=== PATIENT | male | born 1985 | race Caucasian/White ===

== ENCOUNTER 2017-04-03 22:51 | Emergency (ER) | payer SELFPAY ==
[~2017-04-03] VITALS: Ht 170.2 cm; Wt 73.0 kg
[2017-04-03 22:53] VITALS: BP 144/79; PULSE 78; RESP 18; TEMP 98.7; O2SAT 97
[2017-04-03] MEDS ORDERED: IBUP800T23 PO (23:51)
--- NOTE | 2017-04-04 00:26 | PD ---
HPI Chief Complaint: Flank/Kidney Pain Time Seen by Provider: 00:09 Travel History International Travel<30 days: No Contact w/Intl Traveler<30days: No Traveled to known affect area: No History of Present Illness HPI 31-year-old male complains of right flank pain and right upper quadrant abdominal pain. Patient states that the symptoms started this afternoon. Patient states that he has nausea but no vomiting or diarrhea. Patient denies any fever chills. Patient denies any injury. Patient denies any history kidney stone. Patient denies any dysuria or frequency. PFSH Past Medical History Medical History: Denies Significant Hx Tetanus Vaccination: < 5 Years Influenza Vaccination: No Social History Alcohol Use: Yes (rare) Tobacco Use: Yes ( 3 per day) Substance Use: No Allergies-Medications (Allergen,Severity, Reaction): Coded Allergies: No Known Allergies (Unverified , 04/03/17) Reported Meds & Prescriptions Reported Meds & Active Scripts Active Reported Ibuprofen 800 Mg Tab 800 Mg PO Q6HR PRN Review of Systems General / Constitutional: No: Fever Eyes: No: Visual changes HENT: No: Headaches Cardiovascular: No: Chest Pain or Discomfort Respiratory: No: Shortness of Breath Gastrointestinal: Positive: Abdominal Pain Genitourinary: No: Dysuria Musculoskeletal: No: Pain Skin: No Rash Neurologic: No: Weakness Psychiatric: No: Depression Endocrine: No: Polydipsia Hematologic/Lymphatic: No: Easy Bruising Physical Exam Narrative GENERAL: Well-nourished, well-developed patient. SKIN: Focused skin assessment warm/dry. HEAD: Normocephalic. EYES: No scleral icterus. No injection or drainage. NECK: Supple, trachea midline. No JVD or lymphadenopathy. CARDIOVASCULAR: Regular rate and rhythm without murmurs, gallops, or rubs. RESPIRATORY: Breath sounds equal bilaterally. No accessory muscle use. GASTROINTESTINAL: Abdomen soft. Patient has moderate tenderness on palpation right flank area and right upper quadrant of the abdomen. No rebound tenderness. No mass. BACK: Nontender without obvious deformity. No CVA tenderness. Neurologic exam normal. Data Data Last Documented VS Vital Signs Date Time Temp Pulse Resp B/P (MAP) Pulse Ox O2 Delivery O2 Flow Rate FiO2 04/04/17 01:05 98 04/03/17 23:52 88 20 04/03/17 22:53 98.7 Orders Orders Complete Blood Count With Diff (04/04/17:26) Comprehensive Metabolic Panel (04/04/17 00:26) Lipase (04/04/17:26) Prothrombin Time / Inr (Pt) (04/04/17) Act Partial Throm Time (Ptt) (04/04/17:) Urinalysis - C+S If Indicated (04/04/17:) Ct Abd/Pel W Iv Contrast(Rout) (04/04/17:) Iv Access Insert/Monitor (04/04/17:) Ecg Monitoring (04/04/17:) Oximetry (04/04/17:) Morphine Inj (Morphine Inj) (04/04/17 00:30) Ondansetron Inj (Zofran Inj) (04/04/17 00:30) Sodium Chloride 0.9% Flush (Ns Flush) (04/04/17 00:30) Iohexol 350 Inj (Omnipaque 350 Inj) (04/04/17 01:43) Ketorolac Inj (Toradol Inj) (04/04/17 02:30) Labs Laboratory Tests Test 04/04/17 00:15 White Blood Count 11.7 TH/MM3 Red Blood Count 4.67 MIL/MM3 Hemoglobin 14.5 GM/DL Hematocrit 43.0 % Mean Corpuscular Volume 92.1 FL Mean Corpuscular Hemoglobin 31.0 PG Mean Corpuscular Hemoglobin Concent 33.7 % Red Cell Distribution Width 13.6 % Platelet Count 269 TH/MM3 Mean Platelet Volume 8.7 FL Neutrophils (%) (Auto) 82.8 % Lymphocytes (%) (Auto) 9.2 % Monocytes (%) (Auto) 6.5 % Eosinophils (%) (Auto) 0.2 % Basophils (%) (Auto) 1.3 % Neutrophils # (Auto) 9.7 TH/MM3 Lymphocytes # (Auto) 1.1 TH/MM3 Monocytes # (Auto) 0.8 TH/MM3 Eosinophils # (Auto) 0.0 TH/MM3 Basophils # (Auto) 0.2 TH/MM3 CBC Comment AUTO DIFF Differential Comment AUTO DIFF CONFIRMED Platelet Estimate NORMAL Platelet Morphology Comment NORMAL Red Cell Morphology Comment NORMAL Prothrombin Time 10.4 SEC Prothromb Time International Ratio 0.9 RATIO Activated Partial Thromboplast Time 23.2 SEC Urine Color YELLOW Urine Turbidity HAZY Urine pH 6.0 Urine Specific [place] 1.021 Urine Protein TRACE mg/dL Urine Glucose (UA) NEG mg/dL Urine Ketones NEG mg/dL Urine Occult Blood MOD Urine Nitrite NEG Urine Bilirubin NEG Urine Urobilinogen LESS THAN 2.0 MG/DL Urine Leukocyte Esterase SMALL Urine RBC 171 /hpf Urine WBC 6 /hpf Urine Calcium Oxalate Crystals RARE /hpf Urine Amorphous Sediment RARE Urine Bacteria RARE /hpf Urine Mucus FEW /lpf Microscopic Urinalysis Comment CULT NOT INDICATED Blood Urea Nitrogen 15 MG/DL Creatinine 0.90 MG/DL Random Glucose 109 MG/DL Total Protein 8.4 GM/DL Albumin 4.5 GM/DL Calcium Level 9.1 MG/DL Alkaline Phosphatase 101 U/L Aspartate Amino Transf (AST/SGOT) 18 U/L Alanine Aminotransferase (ALT/SGPT) 32 U/L Total Bilirubin 0.3 MG/DL Sodium Level 137 MEQ/L Potassium Level 3.6 MEQ/L Chloride Level 103 MEQ/L Carbon Dioxide Level 27.8 MEQ/L Anion Gap 6 MEQ/L Estimat Glomerular Filtration Rate 97 ML/MIN Lipase 86 U/L [facility] Medical Decision Making Medical Screen Exam Complete: Yes Emergency Medical Condition: Yes Interpretation(s) Last Impressions Abdomen/Pelvis CT 04/04/17 0026 Signed Impressions: Service Date/Time: Tuesday, April 04, 2017 01:41 - CONCLUSION: 1. 5 mm mid to distal calcified right ureteral calculus with associated mild right hydroureteronephrosis. 2. Normal appendix. 3. Small fat containing bilateral inguinal hernias. Pieter Navas MD 2:15 AM. CBC with WBC 11.7. 82 neutrophil. Differential Diagnosis Differential diagnosis including musculoskeletal, nephrolithiasis, pyelonephritis, acute cholecystitis, colitis. Narrative Course 31-year-old male with right flank pain and right upper quadrant abdominal pain. Diagnosis Primary Impression: Nephrolithiasis Patient Instructions: General Instructions Additional Instructions: Take medications as directed. Follow-up with urologist. Return if intractable pain, fever, persistent vomiting. Med/Other Pt SpecificInfo: Prescription(s) given Scripts Ondansetron Odt (Zofran Odt) 4 Mg Tab 4 MG SL Q6HR Y for Nausea/Vomiting, #10 TAB 0 Refills Prov: Hector Hayes MD 04/04/17 Tamsulosin (Flomax) 0.4 Mg Cap 0.4 MG PO HS for Manage Prostate Problems, #10 CAP 0 Refills Prov: Hector Hayes MD 04/04/17 Hydrocodone-Acetaminophen ([place]) 5-325 mg Tab 1 TAB PO Q6H Y for PAIN, #30 TAB 0 Refills Prov: Hector Hayes MD 04/04/17 Disposition: 01 DISCHARGE HOME Condition: Stable Hector Hayes MD Apr 04, 2017 00:26
[2017-04-04] MEDS ORDERED: SODIUM CHLORIDE 0.9% FLUSH 10 ML FLUSH IV FLUSH PRN (00:30)
[2017-04-04] MEDS ORDERED: MORPHINE SULFATE 4 MG/ML INJ IV PUSH ONE (00:30)
[2017-04-04] MEDS ORDERED: ONDANSETRON HCL 4 MG/2 ML VIAL IVP ONE (00:30)
[2017-04-04 01:05] VITALS: O2SAT 98
[2017-04-04 01:16] LABS: AUTOMATED NEUTROPHIL # 9.7 TH/MM3 (1.8-7.7); BASOPHIL # 0.2 TH/MM3 (0-0.2); BASOPHIL % 1.3 % (0.0-2.0); EOSINOPHIL % 0.2 % (0.0-4.0); LYMPH % 9.2 % (9.0-44.0); LYMPHOCYTE # 1.1 TH/MM3 (1.0-4.8); MEAN CELL VOLUME 92.1 FL (80.0-100.0); MEAN CORPUSCULAR HGB CONC 33.7 % (32.0-36.0); MONO % 6.5 % (0.0-8.0); NEUT % 82.8 % (16.0-70.0); PLATELET COUNT 269 TH/MM3 (150-450); RED BLOOD COUNT 4.67 MIL/MM3 (4.50-5.90); RED CELL DISTRIBUTION WIDTH 13.6 % (11.6-17.2); WHITE BLOOD COUNT 11.7 TH/MM3 (4.0-11.0)
[2017-04-04 01:17] LABS: HEMO FLAGS AUTO DIFF
[2017-04-04 01:22] LABS: BACTERIA, URINE RARE /hpf; BLOOD, URINE MOD (NEG); CALCIUM OXALATE CRYSTALS,URINE RARE /hpf; GLUCOSE,URINE NEG (NEG); KETONE, URINE NEG (NEG); MUCUS URINE FEW /lpf (OCC); NITRITE,URINE NEG (NEG); URINE COLOR YELLOW (YELLW/STRAW)
[2017-04-04 01:25] LABS: ALT (GPT) 32 U/L (12-78); ANION GAP 6 MEQ/L (5-15); AST (GOT) 18 U/L (15-37); BICARBONATE 27.8 MEQ/L (21.0-32.0); BLOOD UREA NITROGEN 15 MG/DL (7-18); CHLORIDE 103 MEQ/L (98-107); GLOMERULAR FILTRATION RATE 97 ML/MIN (>89); POTASSIUM 3.6 MEQ/L (3.5-5.1); SODIUM (NA) 137 MEQ/L (136-145)
[2017-04-04 01:26] LABS: ALKALINE PHOSPHATASE 101 U/L (45-117); TOTAL BILIRUBIN ADULT 0.3 MG/DL (0.2-1.0)
[2017-04-04 01:28] LABS: APTT (PATIENT) 23.2 SEC (24.3-30.1); INTERNATIONAL NORMALIZED RATIO 0.9 RATIO; PROTHROMBIN TIME - PATIENT 10.4 SEC (9.8-11.6)
[2017-04-04 01:35] LABS: COMMENT (UR) CULT NOT INDICATED; CULTURE IF INDICATED CULT NOT INDICATED
[2017-04-04] MEDS ORDERED: IOHEXOL 350 MG/ML 10 ML VIAL (for RAD DIAG) IVCONTRAST ONE (01:43)
[2017-04-04 01:49] LABS: PLATELET ESTIMATE SMEAR NORMAL (NORMAL); PLATELET MORPHOLOGY NORMAL (NORMAL); SCAN/DIFF AUTO DIFF CONFIRMED
--- NOTE | 2017-04-04 02:05 | RADRPT ---
EXAM DATE/TIME: 04/04/2017 01:41 [facility] COMPARISON: No previous studies available for comparison. INDICATIONS : Right side abdominal pain. IV CONTRAST: 100 cc Omnipaque 350 (iohexol) IV ORAL CONTRAST: No oral contrast ingested. RADIATION DOSE: 6.73 CTDIvol (mGy) MEDICAL HISTORY : None SURGICAL HISTORY : None. ENCOUNTER: Initial ACUITY: 1 day PAIN SCALE: 6/10 LOCATION: Right abdomen. TECHNIQUE: Volumetric scanning of the abdomen and pelvis was performed. Using automated exposure control and ad justment of the mA and/or kV according to patient size, radiation dose was kept as low as reasonably achievable to obtain optimal diagnostic quality images. DICOM format image data is available electro nically for review and comparison. FINDINGS: LOWER LUNGS: Minimal groundglass opacities at the lung bases likely reflecting atelectasis. LIVER: Homogeneous density without lesion. There is no dilation of the biliary tree. No calcified gallston es. SPLEEN: Normal size without lesion. PANCREAS: Within normal limits. KIDNEYS: There is a 5 mm calcified calculus in the mid to distal right ureter with associated mild proximal hy droureteronephrosis. No additional radiopaque renal calculi. Left kidney is normal in appearance. ADRENAL GLANDS: Within normal limits. VASCULAR: There is no aortic aneurysm. BOWEL/MESENTERY: Dense material is seen in the terminal ileum likely due to prior oral contrast. Appendix is visualize d and normal at this time. Bowel appears unremarkable without evidence for obstruction. There is no f ree air or pneumatosis. ABDOMINAL WALL: Within normal limits. RETROPERITONEUM: There is no lymphadenopathy. BLADDER: No radiopaque calculi in the bladder. Bladder is distended and appears unremarkable. REPRODUCTIVE: Within normal limits. INGUINAL: Small fat containing bilaterally were hernias. MUSCULOSKELETAL: Within normal limits for patient age. CONCLUSION: 1. 5 mm mid to distal calcified right ureteral calculus with associated mild right hydroureteronephro sis. 2. Normal appendix. 3. Small fat containing bilateral inguinal hernias. Pieter Navas MD on April 04, 2017 at 1:57 Board Certified Radiologist. This report was verified electronically.
[2017-04-04] MEDS ORDERED: ZOFR4TAB3 SL (02:22)
[2017-04-04] MEDS ORDERED: TAMS5CAP PO (02:22)
[2017-04-04] MEDS ORDERED: NORC5TAB PO (02:22)
[2017-04-04] MEDS ORDERED: KETOROLAC TROMETHAMINE 30 MG/ML (IVP) VIAL IV PUSH ONE (02:30)
== END 2017-04-04 02:42 | disposition home or self-care (01) ==
LOC: NEPC 22:51
DX: N20.0 Calculus of kidney (principal); K40.20 Bilateral inguinal hernia, without obstruction or gangrene, not specified as recurrent; F17.200 Nicotine dependence, unspecified, uncomplicated
CPT/HCPCS: 74177; 80053; 81001; 83690; 85025; 85610; 85730; 96374; 96375; 99285; J1885; J2270; J2405; Q9967

== ENCOUNTER 2017-05-12 23:11 | Emergency (ER) | payer SELFPAY ==
[~2017-05-12] VITALS: Ht 167.6 cm; Wt 70.0 kg
[~2017-05-12 23:11] MED LIST: IBUP800T23 PO; NORC5TAB PO; TAMS5CAP PO; ZOFR4TAB3 SL
[2017-05-12 23:14] VITALS: BP 134/87; PULSE 67; RESP 16; TEMP 97.9; O2SAT 98
[2017-05-13] MEDS ORDERED: SODIUM CHLOR 0.9% 1000 ML INJ 1,000 ML IV SCH (01:01)
--- NOTE | 2017-05-13 01:06 | PD ---
HPI Chief Complaint: Flank/Kidney Pain Time Seen by Provider: 00:56 Travel History International Travel<30 days: No Contact w/Intl Traveler<30days: No Traveled to known affect area: No History of Present Illness HPI 31-year-old male complains of right flank pain and right abdominal pain. Patient states the symptoms started this afternoon. Patient has history kidney stone in the past. Patient states the pain is sharp pain started on the right flank area with radiation to right side abdomen. Patient denies any fever chills. Patient states that he has intermittent nausea vomiting with the pain. Patient states that he has decreasing urine output since this afternoon. PFSH Past Medical History Diminished Hearing: No Kidney Stones: Yes Tetanus Vaccination: Unknown Social History Alcohol Use: Yes (rare) Tobacco Use: No Substance Use: No Allergies-Medications (Allergen,Severity, Reaction): Coded Allergies: No Known Allergies (Unverified , 04/03/17) Reported Meds & Prescriptions Reported Meds & Active Scripts Active Zofran Odt (Ondansetron Odt) 4 Mg Tab 4 Mg SL Q6HR PRN Flomax (Tamsulosin HCl) 0.4 Mg Cap 0.4 Mg PO HS [place] (Hydrocodone-Acetaminophen) 5-325 mg Tab 1 Tab PO Q6H PRN Reported Ibuprofen 800 Mg Tab 800 Mg PO Q6HR PRN Review of Systems General / Constitutional: No: Fever Eyes: No: Visual changes HENT: No: Headaches Cardiovascular: No: Chest Pain or Discomfort Respiratory: No: Shortness of Breath Gastrointestinal: Positive: Nausea, Vomiting, Abdominal Pain Genitourinary: No: Dysuria Musculoskeletal: No: Pain Skin: No Rash Neurologic: No: Weakness Psychiatric: No: Depression Endocrine: No: Polydipsia Hematologic/Lymphatic: No: Easy Bruising Physical Exam Narrative GENERAL: Well-nourished, well-developed patient. SKIN: Focused skin assessment warm/dry. HEAD: Normocephalic. EYES: No scleral icterus. No injection or drainage. NECK: Supple, trachea midline. No JVD or lymphadenopathy. CARDIOVASCULAR: Regular rate and rhythm without murmurs, gallops, or rubs. RESPIRATORY: Breath sounds equal bilaterally. No accessory muscle use. GASTROINTESTINAL: Abdomen soft, nondistended. Patient has moderate tenderness on palpation right flank and right mid abdomen area. No rebound tenderness. No mass. MUSCULOSKELETAL: No cyanosis, or edema. BACK: Nontender without obvious deformity. No CVA tenderness. Data Data Last Documented VS Vital Signs Date Time Temp Pulse Resp B/P (MAP) Pulse Ox O2 Delivery O2 Flow Rate FiO2 05/13/17 01:25 70 99 Room Air 05/12/17 23:14 97.9 16 Orders Orders Basic Metabolic Panel (Bmp) (05/13/17 01:01) Complete Blood Count With Diff (05/13/17 01:01) Urinalysis - C+S If Indicated (05/13/17 01:01) Ct Abd/Pel W/O Iv Contrast (05/13/17 01:01) Iv Access Insert/Monitor (05/13/17 01:01) Ecg Monitoring (05/13/17 01:01) Oximetry (05/13/17 01:01) Morphine Inj (Morphine Inj) (05/13/17 01:15) Ondansetron Inj (Zofran Inj) (05/13/17 01:15) Sodium Chlor 0.9% 1000 Ml Inj (Ns 1000 M (05/13/17 01:01) Ketorolac Inj (Toradol Inj) (05/13/17 01:15) Labs Laboratory Tests Test 05/13/17 01:26 White Blood Count 11.6 TH/MM3 Red Blood Count 4.47 MIL/MM3 Hemoglobin 13.9 GM/DL Hematocrit 40.6 % Mean Corpuscular Volume 90.8 FL Mean Corpuscular Hemoglobin 31.2 PG Mean Corpuscular Hemoglobin Concent 34.3 % Red Cell Distribution Width 12.9 % Platelet Count 224 TH/MM3 Mean Platelet Volume 8.6 FL Neutrophils (%) (Auto) 85.6 % Lymphocytes (%) (Auto) 8.5 % Monocytes (%) (Auto) 5.5 % Eosinophils (%) (Auto) 0.1 % Basophils (%) (Auto) 0.3 % Neutrophils # (Auto) 9.9 TH/MM3 Lymphocytes # (Auto) 1.0 TH/MM3 Monocytes # (Auto) 0.6 TH/MM3 Eosinophils # (Auto) 0.0 TH/MM3 Basophils # (Auto) 0.0 TH/MM3 CBC Comment DIFF FINAL Differential Comment Urine Color LIGHT-YELLOW Urine Turbidity CLEAR Urine pH 7.0 Urine Specific [place] 1.012 Urine Protein NEG mg/dL Urine Glucose (UA) NEG mg/dL Urine Ketones 10 mg/dL Urine Occult Blood NEG Urine Nitrite NEG Urine Bilirubin NEG Urine Urobilinogen LESS THAN 2.0 MG/DL Urine Leukocyte Esterase NEG Urine RBC 4 /hpf Urine WBC 1 /hpf Urine Bacteria RARE /hpf Microscopic Urinalysis Comment CULT NOT INDICATED Blood Urea Nitrogen 15 MG/DL Creatinine 1.08 MG/DL Random Glucose 110 MG/DL Calcium Level 8.6 MG/DL Sodium Level 133 MEQ/L Potassium Level 3.4 MEQ/L Chloride Level 100 MEQ/L Carbon Dioxide Level 27.4 MEQ/L Anion Gap 6 MEQ/L Estimat Glomerular Filtration Rate 79 ML/MIN [facility] Medical Decision Making Medical Screen Exam Complete: Yes Emergency Medical Condition: Yes Interpretation(s) 3:[address] scan abdomen and pelvis show 5 mm stone distal right ureter causing moderate hydronephrosis and hydroureter. The stone is just above the UVJ. Differential Diagnosis Differential diagnosis included nephrolithiasis, pyelonephritis. Narrative Course 31-year-old male with right flank pain and right-sided abdominal pain. Normal saline solution 1 25 cc an hour. Morphine 2 mg IV. Zofran 4 mg IV. Toradol 30 mg IV. Diagnosis Primary Impression: Nephrolithiasis Patient Instructions: General Instructions Additional Instructions: Take medication as directed. Follow up with urologist. Return if intractable pain, persistent vomiting, fever. Strain the urine. Med/Other Pt SpecificInfo: Prescription(s) given Scripts Hydrocodone-Acetaminophen ([place]) 5-325 mg Tab 1 TAB PO Q6H Y for PAIN, #30 TAB 0 Refills Prov: Hector Hayes MD 05/13/17 Ondansetron Odt (Zofran Odt) 4 Mg Tab 4 MG SL Q6HR Y for Nausea/Vomiting, #10 TAB 0 Refills Prov: Hector Hayes MD 05/13/17 Tamsulosin (Flomax) 0.4 Mg Cap 0.4 MG PO HS for Manage Prostate Problems, #14 CAP 0 Refills Prov: Hector Hayes MD 05/13/17 Disposition: 01 DISCHARGE HOME Condition: Stable Hector Hayes MD May 13, 2017 01:06
[2017-05-13] MEDS ORDERED: MORPHINE SULFATE 4 MG/ML INJ IV PUSH ONE (01:15)
[2017-05-13] MEDS ORDERED: KETOROLAC TROMETHAMINE 30 MG/ML (IVP) VIAL IVP ONE (01:15)
[2017-05-13] MEDS ORDERED: ONDANSETRON HCL 4 MG/2 ML VIAL IVP ONE (01:15)
[2017-05-13 01:25] VITALS: PULSE 70; O2SAT 99
[2017-05-13 01:49] LABS: AUTOMATED NEUTROPHIL # 9.9 TH/MM3 (1.8-7.7); BASOPHIL % 0.3 % (0.0-2.0); EOSINOPHIL % 0.1 % (0.0-4.0); HEMATOCRIT 40.6 % (39.0-51.0); HEMO FLAGS DIFF FINAL; LYMPH % 8.5 % (9.0-44.0); MEAN CELL VOLUME 90.8 FL (80.0-100.0); MEAN CORPUSCULAR HEMOGLOBIN 31.2 PG (27.0-34.0); MEAN CORPUSCULAR HGB CONC 34.3 % (32.0-36.0); MONO % 5.5 % (0.0-8.0); NEUT % 85.6 % (16.0-70.0); PLATELET COUNT 224 TH/MM3 (150-450); RED BLOOD COUNT 4.47 MIL/MM3 (4.50-5.90); RED CELL DISTRIBUTION WIDTH 12.9 % (11.6-17.2); WHITE BLOOD COUNT 11.6 TH/MM3 (4.0-11.0)
[2017-05-13 01:59] LABS: BACTERIA, URINE RARE /hpf; BLOOD, URINE NEG (NEG); COMMENT (UR) CULT NOT INDICATED; CULTURE IF INDICATED CULT NOT INDICATED; GLUCOSE,URINE NEG (NEG); KETONE, URINE 10 mg/dL (NEG); NITRITE,URINE NEG (NEG); URINE COLOR LIGHT-YELLOW (YELLW/STRAW)
[2017-05-13 02:20] LABS: BICARBONATE 27.4 MEQ/L (21.0-32.0); POTASSIUM 3.4 MEQ/L (3.5-5.1)
--- NOTE | 2017-05-13 03:10 | RADRPT ---
EXAM DATE/TIME: 05/13/2017 02:36 [facility] COMPARISON: No previous studies available for comparison. INDICATIONS : Right flank pain. ORAL CONTRAST: No oral contrast ingested. RADIATION DOSE: 13.28 CTDIvol (mGy) MEDICAL HISTORY : Renal calculi. SURGICAL HISTORY : None. ENCOUNTER: Initial ACUITY: 1 day PAIN SCALE: 9/10 LOCATION: Right flank TECHNIQUE: Volumetric scanning of the abdomen and pelvis was performed. Using automated exposure control and ad justment of the mA and/or kV according to patient size, radiation dose was kept as low as reasonably achievable to obtain optimal diagnostic quality images. DICOM format image data is available electro nically for review and comparison. FINDINGS: LOWER LUNGS: The visualized lower lungs are clear. LIVER: Homogeneous density without lesion. There is no dilation of the biliary tree. No calcified gallston es. SPLEEN: Normal size without lesion. PANCREAS: Within normal limits. KIDNEYS: There is a 5 mm stone in the distal right ureter just above the UVJ. There is moderate right hydronep hrosis and hydroureter. The left kidney is normal. ADRENAL GLANDS: Within normal limits. VASCULAR: There is no aortic aneurysm. BOWEL/MESENTERY: The stomach, small bowel, and colon demonstrate no acute abnormality. There is no free intraperitone al air or fluid. ABDOMINAL WALL: Within normal limits. RETROPERITONEUM: There is no lymphadenopathy. BLADDER: No wall thickening or mass. REPRODUCTIVE: Within normal limits. INGUINAL: There is no lymphadenopathy or hernia. MUSCULOSKELETAL: Within normal limits for patient age. CONCLUSION: 5 mm stone at the distal right ureter causing moderate hydronephrosis and hydroureter. The stone is j ust above the UVJ. Jefry Montana MD on May 13, 2017 at 3:05 Board Certified Radiologist. This report was verified electronically.
[2017-05-13] MEDS ORDERED: TAMS5CAP PO (03:35)
[2017-05-13] MEDS ORDERED: NORC5TAB PO (03:35)
[2017-05-13] MEDS ORDERED: ZOFR4TAB3 SL (03:35)
== END 2017-05-13 03:50 | disposition home or self-care (01) ==
LOC: NEPC 23:11
DX: N20.0 Calculus of kidney (principal); Z87.442 Personal history of urinary calculi
CPT/HCPCS: 74176; 80048; 81001; 85025; 96361; 96374; 96375; 99285; J1885; J2270; J2405; J7030